=== PATIENT | male | born 1965 | race Caucasian/White ===

== ENCOUNTER 2017-01-26 11:41 | Emergency (ER) | payer BC ==
[2017-01-26 11:53] VITALS: BP 154/112
[2017-01-26] MEDS ORDERED: Sodium Chloride 0.9% 10 ML Syringe FLUSH PRN (12:18)
[2017-01-26] MEDS ORDERED: HYDROmorphone 0.5 MG/0.5 ML Syringe IVPUSH ONE (12:18)
--- NOTE | 2017-01-26 12:20 | EDM.PDOC ---
ED HPI GENERAL MEDICAL PROBLEM - General Chief Complaint: Respiratory Problem Stated Complaint: SOB Time Seen by Provider: 01/26/17 12:09 Source of Information: Reports: Patient History Limitations: Reports: No Limitations - History of Present Illness INITIAL COMMENTS - FREE TEXT/NARRATIVE: Patient is a 51-year-old male with a history of COPD, spontaneous pneumothorax, and hypertension who presents to the ED complaining of right lower sternal border chest discomfort worsened with taking a deep breath and coughing. Patient states this started yesterday and has progressively worsened since onset. It feels like the same pain he experienced with having previous spontaneous pneumothorax approximately 20 years ago. Patient does have a chronic cough that is productive unchanged with recent events. Denies any increased shortness of breath, fever/chills, sinus congestion, or sore throat. He has no abdominal pain. Denies any diarrhea. States he has been nauseated with intermittent emesis for the past 6 weeks with unclear etiology. Patient does have intermittent acid reflux but notes this is not severe. Denies any blood in the stool or emesis. He does consume alcohol on a regular basis. Last drink was last night. States he is an alcoholic. Stopped smoking approximately 10 years ago with diagnosis of COPD. Otherwise offers no additional complaints. Pain is described as sharp with radiation to his mid back. At rest as a 3 out of 10 with coughing or intake and taking a deep breath is a 10 out of 10. Right Chest Pain Score (Numeric/FACES): 3 - Related Data Allergies Allergy/AdvReac Type Severity Reaction Status Date / Time codeine Allergy Anaphylactic Verified 01/26/17 11:48 Shock Home Meds: Home Meds Hydrochlorothiazide/Lisinopril [Lisinopril/HCTZ 20-12.5 MG] 10 mg PO BEDTIME [History] Budesonide/Formoterol Fumarate [Symbicort 160-4.5 Mcg Inhaler] 2 puff IH BID 06/13 [History] Prednisone [IMW: predniSONE] 40 mg PO WITHBREAKFAST #10 tab 01/26/17 [Rx] Past Medical History Cardiovascular History: Reports: Hypertension Respiratory History: Reports: COPD, Pneumothorax - Past Surgical History Other Musculoskeletal Surgeries/Procedures:: surgery to L4 Social & Family History - Tobacco Use Smoking Status *Q: Former Smoker Years of Tobacco use: 20 Used Tobacco, but Quit: Yes Month Tobacco Last Used: 2007 Second Hand Smoke Exposure: No - Alcohol Use Days Per Week of Alcohol Use: 7 Number of Drinks Per Day: 2 Total Drinks Per Week: 14 - Recreational Drug Use Recreational Drug Use: No ED ROS GENERAL - Review of Systems Review Of Systems: ROS reveals no pertinent complaints other than HPI. ED EXAM, GENERAL - Physical Exam Exam: See Below Exam Limited By: No Limitations General Appearance: Alert, WD/WN, No Apparent Distress Ears: Hearing Grossly Normal Nose: Normal Inspection Throat/Mouth: Normal Voice, No Airway Compromise Respiratory/Chest: No Respiratory Distress, Lungs Clear, Normal Breath Sounds, No Accessory Muscle Use, Chest Non-Tender Cardiovascular: Normal Peripheral Pulses, Regular Rate, Rhythm, No Murmur Peripheral Pulses: 2+: Radial (R) GI/Abdominal: Normal Bowel Sounds, Soft, Non-Tender, No Organomegaly, No Distention Extremities: Normal Inspection, Normal Range of Motion, Non-Tender, No Pedal Edema, Normal Capillary Refill Neurological: Alert, Oriented, CN II-XII Intact, Normal Cognition, No Motor/ Sensory Deficits Psychiatric: Normal Affect, Normal Mood Skin Exam: Warm, Dry, Intact, Normal Color Course - Vital Signs Last Recorded V/S: Last Vital Signs Temp 97.8 F 01/26/17 11:42 Pulse 89 01/26/17 11:42 Resp 25 H 01/26/17 11:42 BP 154/112 H 01/26/17 11:42 Pulse Ox 92 L 01/26/17 11:42 - Orders/Labs/Meds Orders: Active Orders 24 hr Category Date Time Status EKG Documentation Completion [RC] ASDIRECTED Care 01/26/17 11:59 Active Peripheral IV Care [RC] . DIRECTED Care 01/26/17 12:18 Active Peripheral IV Insertion Adult [OM.PC] Stat Oth 01/26/17 12:18 Ordered EKG 12 Lead [EK] Stat Ther 01/26/17 11:58 Ordered Labs: Laboratory Tests 01/26/17 01/26/17 01/26/17 Range/Units 11:55 11:55 11:55 WBC 8.09 (4.23-9.07) K/mm3 RBC 4.95 (4.63-6.08) M/mm3 Hgb 15.4 (13.7-17.5) gm/L Hct 43.8 (40.1-51.0) % MCV 88.5 (79.0-92.2) fl MCH 31.1 (25.7-32.2) pg MCHC 35.2 (32.2-35.5) g/dl RDW Std Deviation 41.5 (35.1-43.9) fL Plt Count 174 (163-337) K/mm3 MPV 10.1 (9.4-12.3) fl Neut % (Auto) 52.9 (34.0-67.9) % Lymph % (Auto) 34.0 (21.8-53.1) % Haskell % (Auto) 7.2 (5.3-12.2) % Eos % (Auto) 4.7 (0.8-7.0) Baso % (Auto) 1.1 (0.1-1.2) % Neut # (Auto) 4.28 (1.78-5.38) K/mm3 Lymph # (Auto) 2.75 (1.32-3.57) K/mm3 Haskell # (Auto) 0.58 (0.30-0.82) K/mm3 Eos # (Auto) 0.38 (0.04-0.54) K/mm3 Baso # (Auto) 0.09 H (0.01-0.08) K/mm3 D-Dimer, Quantitative 0.28 (0.19-0.59) mg/L Sodium 139 (136-145) mEq/L Potassium 3.9 (3.5-5.1) mEq/L Chloride 103 (98-107) mEq/L Carbon Dioxide 28 (21-32) mEq/L Anion Gap 11.9 (5-15) BUN 17 (7-18) mg/dL Creatinine 1.1 (0.7-1.3) mg/dL Est Cr Clr Drug Dosing 72.61 mL/min Estimated GFR (MDRD) > 60 (>60) mL/min BUN/Creatinine Ratio 15.5 (14-18) Glucose 157 H (74-106) mg/dL Calcium 9.6 (8.5-10.1) mg/dL Total Bilirubin 0.7 (0.2-1.0) mg/dL AST 29 (15-37) U/L ALT 77 H (16-63) U/L Alkaline Phosphatase 73 (46-116) U/L Troponin I < 0.017 (0.00-0.056) ng/mL Total Protein 7.9 (6.4-8.2) g/dl Albumin 4.0 (3.4-5.0) g/dl Globulin 3.9 gm/dL Albumin/Globulin Ratio 1.0 (1-2) Lipase (73-393) U/L 01/26/17 Range/Units 11:55 WBC (4.23-9.07) K/mm3 RBC (4.63-6.08) M/mm3 Hgb (13.7-17.5) gm/L Hct (40.1-51.0) % MCV (79.0-92.2) fl MCH (25.7-32.2) pg MCHC (32.2-35.5) g/dl RDW Std Deviation (35.1-43.9) fL Plt Count (163-337) K/mm3 MPV (9.4-12.3) fl Neut % (Auto) (34.0-67.9) % Lymph % (Auto) (21.8-53.1) % Haskell % (Auto) (5.3-12.2) % Eos % (Auto) (0.8-7.0) Baso % (Auto) (0.1-1.2) % Neut # (Auto) (1.78-5.38) K/mm3 Lymph # (Auto) (1.32-3.57) K/mm3 Haskell # (Auto) (0.30-0.82) K/mm3 Eos # (Auto) (0.04-0.54) K/mm3 Baso # (Auto) (0.01-0.08) K/mm3 D-Dimer, Quantitative (0.19-0.59) mg/L Sodium (136-145) mEq/L Potassium (3.5-5.1) mEq/L Chloride (98-107) mEq/L Carbon Dioxide (21-32) mEq/L Anion Gap (5-15) BUN (7-18) mg/dL Creatinine (0.7-1.3) mg/dL Est Cr Clr Drug Dosing mL/min Estimated GFR (MDRD) (>60) mL/min BUN/Creatinine Ratio (14-18) Glucose (74-106) mg/dL Calcium (8.5-10.1) mg/dL Total Bilirubin (0.2-1.0) mg/dL AST (15-37) U/L ALT (16-63) U/L Alkaline Phosphatase (46-116) U/L Troponin I (0.00-0.056) ng/mL Total Protein (6.4-8.2) g/dl Albumin (3.4-5.0) g/dl Globulin gm/dL Albumin/Globulin Ratio (1-2) Lipase 209 (73-393) U/L Meds: Medications Discontinued Medications Generic Name Dose Route Start Last Admin Trade Name Freq PRN Reason Stop Dose Admin Hydromorphone HCl 0.25 mg 01/26/17 12:18 Dilaudid IVPUSH 01/26/17 12:19 ONETIME ONE Sodium Chloride 10 ml 01/26/17 12:18 01/26/17 12:36 Saline Flush FLUSH 10 ml ASDIRECTED PRN Administration Keep Vein Open - Re-Assessments/Exams Free Text/Narrative Re-Assessment/Exam: Per standing order EKG, chem 14, d-dimer, and troponin. EKG sinus rhythm at a rate of [address] changes. I ordered Dilaudid 0.25 mg IVP. Patient does have anaphylactic reaction to codeine. He does not recall if he has taken Dilaudid in the past. He refuses any pain medications. Ordered chest x-ray two-view, lipase, and peripheral IV started. Labs reviewed: CBC and C14 are essentially normal. D-Dimer wnl. Troponin < 0.017. Lipase 209. CXR revealed no acute findings. I have ordered CT of the Chest w/o contrast due to patients hx of spontaneous pneumothorax. CT of the chest: Incidental Findings. Nothing acute is seen on noncontrast CT study of the chest. Will discharge patient home with instructions as documented. Departure - Departure Time of Disposition: 13:48 Disposition: Home, Self-Care 01 Condition: Good Clinical Impression: Costal chondritis, Atypical chest pain - Discharge Information Prescriptions: Prednisone [IMW: predniSONE] 40 mg PO WITHBREAKFAST #10 tab Instructions: Chest Wall Pain, [id number] Referrals: Cindy Hoang PA-C [Primary Care Provider] - Forms: ED Department Discharge Additional Instructions: Chest pain is not related to spontaneous pneumothorax. Etiology of complaint most likely costochondritis which is inflammation of the cartilaginous joint that attaches ribs to the sternum. Treatment is prednisone 40 mg every day for the next 5 days, ibuprofen 600 mg every 6 hours and Tylenol 650 mg every 6 hours and alternate fashion. Refrain from activities that cause worsening pain. Follow-up with PCP the end of this week for reevaluation. Return to ED for any new or worsening symptoms. - My Orders Last 24 Hours: My Active Orders 01/26/17 11:58 EKG 12 Lead [EK] Stat 01/26/17 11:59 EKG Documentation Completion [RC] ASDIRECTED 01/26/17 12:18 Peripheral IV Care [RC] . DIRECTED Peripheral IV Insertion Adult [OM.PC] Stat - Assessment/Plan Last 24 Hours: My Active Orders 01/26/17 11:58 EKG 12 Lead [EK] Stat 01/26/17 11:59 EKG Documentation Completion [RC] ASDIRECTED 01/26/17 12:18 Peripheral IV Care [RC] . DIRECTED Peripheral IV Insertion Adult [OM.PC] Stat
--- NOTE | 2017-01-26 13:16 | CT ---
Chest CT Technique: Multiple axial sections through the chest were obtained. Intravenous contrast was not utilized. Comparison: Previous chest x-ray of performed earlier on the same day (12:20 PM). Findings: Small calcified granuloma is noted within the left lung base. Minimal calcification is seen within the left hemidiaphragm. Minimal atelectasis is noted within both lung bases. Lungs otherwise are clear. No pleural effusions or pneumothorax is seen. Fatty infiltration is seen within the liver. No pericardial thickening is seen. Mediastinal lymph nodes are seen which appear within normal limits. Bone window settings were reviewed which appears within normal limits for the patient's age. Impression: 1. Incidental findings. Nothing acute is seen on noncontrast CT study of the chest. Diagnostic code #2
--- NOTE | 2017-01-26 15:59 | CR ---
Chest: Two views of the chest were obtained. Comparison: Prior chest x-ray of 01/02/14 as well as subsequent chest CT. Findings: Slight atelectasis seen within both lung bases. Lungs otherwise are clear. Heart size and mediastinum are within normal limits. Bony structures are unremarkable. Impression: 1. Mild bibasilar atelectasis. Nothing acute is seen on two-view chest x-ray. Diagnostic code #2
== END 2017-01-26 14:01 | disposition home or self-care (01) ==
LOC: JD.ED 11:41
DX: M94.0 Chondrocostal junction syndrome [Tietze] (principal); I10 Essential (primary) hypertension; J44.9 Chronic obstructive pulmonary disease, unspecified; Z87.891 Personal history of nicotine dependence; Z88.5 Allergy status to narcotic agent
CPT/HCPCS: 36415; 71020; 71250; 80053; 83690; 84484; 85025; 85379; 93005; 99285; J7050; 99284

== ENCOUNTER 2019-07-19 19:06 | Emergency (ER) | payer BC ==
[2019-07-19 19:25] VITALS: BP 156/102; PULSE 92
[2019-07-19] MEDS ORDERED: HYDROmorphone 1 MG/ML Syringe IM ONE (19:32)
--- NOTE | 2019-07-19 20:12 | EDM.PDOC ---
ED HPI GENERAL MEDICAL PROBLEM - General Chief Complaint: Upper Extremity Injury/Pain Stated Complaint: BROKEN ARM Time Seen by Provider: 07/19/19 19:23 Source of Information: Reports: Patient, RN Notes Reviewed History Limitations: Reports: No Limitations - History of Present Illness INITIAL COMMENTS - FREE TEXT/NARRATIVE: Patient is a 54 year old male who presents to the ED for the evaluation of a left arm injury. The patient states that he was at home and stepped down off some stairs and fell. He landed on his left elbow, he notes that he had immediate pain to his left shoulder upper arm after the fall. He states that he is experiencing some numbness and tingling in his left arm. He can still move his fingers in all range of motion. He will not move his left shoulder due to the amount of pain he is having, he has not taken any sort of OTC meds for pain relief prior to arrival to the ED. Patient notes that he is right hand dominant. Left Upper Arm Pain Score (Numeric/FACES): 10 - Related Data Allergies Allergy/AdvReac Type Severity Reaction Status Date / Time codeine Allergy Anaphylactic Verified 07/19/19 19:24 Shock Home Meds: Home Meds Hydrochlorothiazide/Lisinopril [Lisinopril/HCTZ 20-12.5 MG] 1.5 tab PO BEDTIME 02/23/15 [History] Budesonide/Formoterol Fumarate [Symbicort 160-4.5 Mcg Inhaler] 2 puff IH BID 06/13 [History] Albuterol [Proventil HFA] 2 puff INH Q4H PRN 07/19/19 [History] Hydrocodone/Acetaminophen [Hydrocodon-Acetaminophen 5-325] 1 tab PO Q6H PRN #15 tablet 07/19/19 [Rx] metFORMIN [Glucophage] 1,000 mg PO DAILY 07/19/19 [History] Past Medical History Cardiovascular History: Reports: High Cholesterol, Hypertension Respiratory History: Reports: Asthma, COPD, Pneumothorax Musculoskeletal History: Reports: Arthritis Endocrine/Metabolic History: Reports: Diabetes, Type II - Infectious Disease History Infectious Disease History: Reports: Chicken Pox, Measles, Mumps - Past Surgical History GI Surgical History: Reports: Appendectomy, Hernia Repair/Other Musculoskeletal Surgical History: Reports: Other (See Below) Other Musculoskeletal Surgeries/Procedures:: surgery to L4, hand sx Social & Family History - Family History Family Medical History: Noncontributory - Tobacco Use Smoking Status *Q: Current Every Day Smoker Years of Tobacco use: 15 Packs/Tins Daily: 1 - Caffeine Use Caffeine Use: Reports: Coffee - Alcohol Use Days Per Week of Alcohol Use: 7 Number of Drinks Per Day: 3 Total Drinks Per Week: 21 - Recreational Drug Use Recreational Drug Use: No Review of Systems - Review of Systems Review Of Systems: Comprehensive ROS is negative, except as noted in HPI. ED EXAM, GENERAL - Physical Exam Exam: See Below Exam Limited By: No Limitations General Appearance: Alert, WD/WN, No Apparent Distress (pt does appear to be in pain.) Respiratory/Chest: No Respiratory Distress, Lungs Clear, Normal Breath Sounds, No Accessory Muscle Use, Chest Non-Tender Cardiovascular: Normal Peripheral Pulses, Regular Rate, Rhythm, No Murmur Extremities: Normal Inspection, Normal Capillary Refill, Limited Range of Motion (of left arm d/t pain.) Neurological: Alert, Oriented, Normal Cognition, No Motor/Sensory Deficits Psychiatric: Normal Affect, Normal Mood Skin Exam: Warm, Dry, Intact, Normal Color, No Rash Course - Vital Signs Last Recorded V/S: Last Vital Signs Temp 98.0 F 07/19/19 19:22 Pulse 92 07/19/19 19:22 Resp 19 07/19/19 19:22 BP 156/102 H 07/19/19 19:22 Pulse Ox 95 07/19/19 19:22 - Orders/Labs/Meds Orders: Active Orders 24 hr Category Date Time Status DME for Discharge [COMM] Urgent Oth 07/19/19 21:26 Ordered Meds: Medications Discontinued Medications Generic Name Dose Route Start Last Admin Trade Name Kamron PRN Reason Stop Dose Admin Hydromorphone HCl 1 mg 07/19/19 19:32 07/19/19 20:18 Dilaudid IM 07/19/19 19:33 1 mg ONETIME ONE Administration - Re-Assessments/Exams Free Text/Narrative Re-Assessment/Exam: 07/19/19 20:14 Patient presents to the ED for the evaluation of a left shoulder/upper arm injury. Did order 1 mg Dilaudid for pain management, and x-rays of the shoulder and humerus for further evaluation. 07/19/19 21:32 X-rays sent no sign of a shoulder fracture or humerus fracture. I did relay this to the patient, we will provide him with a sling for pain management, and other general recommendations have him follow-up with his regular care provider if not feeling much better between 7 to 10 days. Departure - Departure Time of Disposition: 21:29 Disposition: Home, Self-Care 01 Condition: Fair Clinical Impression: Injury of left shoulder and upper arm Qualifiers: Encounter type: initial encounter Qualified Code(s): S49.92XA - Unspecified injury of left shoulder and upper arm, initial encounter - Discharge Information *PRESCRIPTION DRUG MONITORING PROGRAM REVIEWED*: Yes *COPY OF PRESCRIPTION DRUG MONITORING REPORT IN PATIENT OPAL: No Prescriptions: Hydrocodone/Acetaminophen [Hydrocodon-Acetaminophen 5-325] 1 tab PO Q6H PRN #15 tablet PRN Reason: Pain Instructions: How To Use a Sling, [id number], Shoulder Pain, [id number] Referrals: Cindy Hoang PA-C [Primary Care Provider] - Forms: ED Department Discharge Additional Instructions: You have been evaluated in the ED for your left shoulder injury. Your x-ray demonstrated no fracture or other bony abnormalities of your left shoulder or upper arm. Please use ice as tolerated to the affected area. Please try to elevate the affected area to relieve swelling. You were given a sling, for pain management , recommend you take your arm out of the sling at least 3-4 times daily and do some range of motion exercises so you do not get a frozen shoulder. You may take Tylenol 500 mg or ibuprofen 600mg q6 hrs for pain relief. Please do so until you have a tolerable level of pain with activity. Do not exceed 4000mg Tylenol or 3200mg ibuprofen in a 24 hour time period. You were given a prescription for a strong pain medication, hydrocodone/ acetaminophen 5/325mg, please take 1 tab every 6 hours as needed for pain not relieved by Tylenol or ibuprofen alone. Please note this medication does contain Tylenol in it, so do not take more than 4000 mg in a 24-hour time span. These medications can be addictive, so please take as few as possible to achieve adequate pain control. These meds can also be quite constipating, recommend that you increase your oral fluid intake and take a stool softener like MiraLAX while taking these medications. Do not drive while taking this medication. Please return to ED if your symptoms should change or worsen. Sepsis Event Note - Evaluation Sepsis Screening Result: No Definite Risk - Focused Exam Vital Signs: Vital Signs Temp Pulse Resp BP Pulse Ox 07/19/19 19:22 98.0 F 92 19 156/102 H 95 Date Exam was Performed: 07/19/19 Time Exam was Performed: 21:32 - My Orders Last 24 Hours: My Active Orders 07/19/19 21:26 DME for Discharge [COMM] Urgent - Assessment/Plan Last 24 Hours: My Active Orders 07/19/19 21:26 DME for Discharge [COMM] Urgent
--- NOTE | 2019-07-19 21:13 | CR ---
Left humerus: AP and lateral views left humerus were obtained. Comparison: No previous humerus study. No fracture or other bony abnormality is appreciated. Impression: 1. No abnormality is identified on 2 view left humerus study. Diagnostic code #1 This report was dictated in MDT
--- NOTE | 2019-07-19 21:13 | CR ---
Left shoulder: 3 views left shoulder were obtained. Comparison: No previous shoulder study. Glenohumeral joint and acromioclavicular joint appears unremarkable. No fracture, dislocation or other bony abnormality is identified. Impression: 1. No abnormality is appreciated on 3 views left shoulder study. Diagnostic code #1 This report was dictated in MDT
== END 2019-07-19 21:37 | disposition home or self-care (01) ==
LOC: JD.ED 19:06
DX: S49.92XA Unspecified injury of left shoulder and upper arm, initial encounter (principal); J44.9 Chronic obstructive pulmonary disease, unspecified; E11.9 Type 2 diabetes mellitus without complications; F17.210 Nicotine dependence, cigarettes, uncomplicated; Z88.5 Allergy status to narcotic agent; Z79.84 Long term (current) use of oral hypoglycemic drugs; W10.9XXA Fall (on) (from) unspecified stairs and steps, initial encounter
CPT/HCPCS: 73030; 73060; 96372; 99283; J1170

== ENCOUNTER 2020-01-25 07:36 | Day surgery (SDC) | payer BC ==
[~2020-01-25 07:36] MED LIST: Albuterol 0.083% 2.5 MG/3 ML Neb Soln NEB PRN; Bisacodyl 5 MG Tab PO PRN; EPINEPHrine 1 MG/ML SDV ONE; Lidocaine 1% 4 ML ONE; Lidocaine 1%/Sod Bicarbonate in NS 8.4% 1 ML Syringe IDERM PRN; Magnesium Hydroxide 400 MG/5 ML Susp 30 ML Cup PO PRN; Midazolam 1 MG/ML 2 ML SDV ONE; Naloxone 0.4 MG/ML SDV IVPUSH PRN; Ondansetron 4 MG/2 ML SDV IVPUSH PRN; Ondansetron 4 MG/2 ML SDV ONE; Propofol 200 MG/20 ML SDV ONE; Rocuronium 50 MG/5 ML Vial ONE; Ropivacaine 0.5% 5 MG/ML 30 ML SDV ONE; Sennosides 8.6 MG Tab PO PRN; Sodium Chloride 0.9% 10 ML Syringe FLUSH PRN; ceFAZolin 1 GM Vial ONE; fentaNYL 250 MCG/5 ML SDV ONE; oxyCODONE 5 MG Tab PO PRN
[2020-01-25] MEDS ORDERED: Bupivacaine 0.25% 10 ML SDV ONE (07:40)
[2020-01-25] MEDS ORDERED: Vancomycin 1 GM SDV ONE (07:40)
--- NOTE | 2020-01-25 07:40 | PCM.PREANE ---
Preanesthetic Assessment - Procedure Proposed Procedure: left reverse total shoulder arthroscopy - Physical Assessment NPO Status Date: 01/24/20 NPO Status Time: 22:00 Vital Signs: 74 97% 98.1 139/93 16 Height: 5 ft 6 in Weight: 79.7 kg ASA Class: 2 Mental Status: Alert & Oriented x3 ROM/Head Extension: Full Lungs: Clear to Auscultation, Normal Respiratory Effort Cardiovascular: Regular Rate, Regular Rhythm - Lab Values: Laboratory Last Values MRSA (PCR) Negative 01/10/20 12:00 - Allergies Allergies/Adverse Reactions: Allergies Allergy/AdvReac Type Severity Reaction Status Date / Time codeine Allergy Nausea and Verified 01/24/20 12:32 Vomiting - Blood Blood Available: No - Acknowledgements Anesthesia Type Planned: General Anesthesia Pt an Appropriate Candidate for the Planned Anesthesia: Yes Alternatives and Risks of Anesthesia Discussed w Pt/Guardian: Yes Pt/Guardian Understands and Agrees with Anesthesia Plan: Yes PreAnesthesia Questionnaire HEENT History: Reports: Other (See Below) Other HEENT History: dentures Cardiovascular History: Reports: High Cholesterol, Hypertension Respiratory History: Reports: COPD, Other (See Below) Other Respiratory History: collapsed lung, chronic bronchitis Genitourinary History: Reports: None [employer] History: Reports: None Musculoskeletal History: Reports: None Neurological History: Reports: None Psychiatric History: Reports: None Endocrine/Metabolic History: Reports: Diabetes, Type II Hematologic History: Reports: None Immunologic History: Reports: None Oncologic (Cancer) History: Reports: None Dermatologic History: Reports: Other (See Below) Other Dermatologic History: ingrown toenails - Infectious Disease History Infectious Disease History: Reports: Chicken Pox, Measles, Mumps - Past Surgical History Head Surgeries/Procedures: Reports: None HEENT Surgical History: Reports: Oral Surgery Cardiovascular Surgical History: Reports: None Respiratory Surgical History: Reports: None GI Surgical History: Reports: Appendectomy, Colonoscopy, Hernia, Inguinal Female Surgical History: Reports: None Male Surgical History: Reports: None Endocrine Surgical History: Reports: None Neurological Surgical History: Reports: None Musculoskeletal Surgical History: Reports: None, Other (See Below) (replace 4 fingers) Oncologic Surgical History: Reports: None Dermatological Surgical History: Reports: None - SUBSTANCE USE Smoking Status *Q: Former Smoker Tobacco Use Within Last Twelve Months: Smokeless Tobacco Second Hand Smoke Exposure: Yes Days Per Week of Alcohol Use: 7 Number of Drinks Per Day: 4 (whiskey) Total Drinks Per Week: 28 Recreational Drug Use History: No - HOME MEDS Home Medications: Home Meds metFORMIN [Glucophage] 500 mg PO DAILY 07/19/19 [History] Albuterol [Take Home: Albuterol 18 GM, 1 INH Pack] 1 - 2 puff INH QID PRN 01/24/20 [History] Cholecalciferol (Vitamin D3) [Vitamin D3] 5,000 unit PO DAILY 01/24/20 [History] Lisinopril/Hydrochlorothiazide [Lisinopril-Hctz 20-25 mg Tab] 1 tab PO DAILY 01/24/20 [History] Simvastatin [Zocor] 40 mg PO DAILY 01/24/20 [History] Aspirin [Ecotrin EC] 325 mg PO BID #84 tab.ec 01/25/20 [Rx] Cyclobenzaprine [Flexeril] 10 mg PO BID PRN #20 tablet 01/25/20 [Rx] Docusate Sodium [Colace] 100 mg PO BID cap 01/25/20 [Rx] Famotidine [Pepcid] 20 mg PO Q12H tablet 01/25/20 [Rx] Magnesium Hydroxide [Milk of Magnesia] 30 ml PO BID PRN cup 01/25/20 [Rx] bisacodyL [Dulcolax] 5 mg PO DAILY PRN tablet 01/25/20 [Rx] oxyCODONE 5 - 10 mg PO Q4H PRN #60 tab 01/25/20 [Rx] - CURRENT (IN HOUSE) MEDS Current Meds: Current Medications Albuterol (Proventil Neb Soln) 2.5 mg NEB ONETIME PRN PRN Reason: COPD Stop: 01/25/20 18:00 Aspirin (Ecotrin) 325 mg PO BID CLAIRE Bisacodyl (Dulcolax) 5 mg PO DAILY PRN PRN Reason: Constipation Cyclobenzaprine HCl (Flexeril) 10 mg PO BID PRN PRN Reason: Spasms Docusate Sodium (Colace) 100 mg PO BID CLAIRE Famotidine (Pepcid) 20 mg PO Q12H CLAIRE Lactated Ringer's (Ringers, Lactated) 1,000 mls @ 125 mls/hr IV ASDIRECTED CLAIRE Stop: 01/25/20 23:00 Cefazolin Sodium/Dextrose 2 gm (/ Premix) 50 mls @ 100 mls/hr IV Q8H CLAIRE Stop: 01/25/20 07:14 Ketorolac Tromethamine (Toradol) 15 mg IVPUSH Q6H PRN PRN Reason: Pain Lidocaine/Sodium Bicarbonate (Buffered Lidocaine 1% In Ns 8.4%) 0.25 ml IDERM ONETIME PRN PRN Reason: Prior to IV Start Stop: 01/25/20 18:00 Magnesium Hydroxide (Milk Of Magnesia) 30 ml PO BID PRN PRN Reason: Constipation Naloxone HCl (Narcan) 0.1 mg IVPUSH Q5M PRN PRN Reason: Oversedation Ondansetron HCl (Zofran) 4 mg IVPUSH Q6H PRN PRN Reason: Nausea/Vomiting Oxycodone HCl (Oxycodone) 5 - 10 mg PO Q4H PRN PRN Reason: Pain Senna (Senna) 8.6 mg PO BID PRN PRN Reason: Constipation Sodium Chloride (Saline Flush) 10 ml FLUSH ASDIRECTED PRN PRN Reason: Keep Vein Open Stop: 01/25/20 18:00 Discontinued Medications Cefazolin Sodium (Ancef) Confirm Administered Dose 2 gm .ROUTE .STK-MED ONE Stop: 01/25/20 06:59 Epinephrine HCl (Adrenalin) Confirm Administered Dose 1 mg .ROUTE .STK-MED ONE Stop: 01/25/20 07:13 Fentanyl (Sublimaze) Confirm Administered Dose 250 mcg .ROUTE .STK-MED ONE Stop: 01/25/20 06:59 Lidocaine HCl (Xylocaine-Mpf 1%) Confirm Administered Dose 4 mls @ as directed .ROUTE .STK-MED ONE Stop: 01/25/20 06:58 Midazolam HCl (Versed 1 Mg/Ml) Confirm Administered Dose 2 mg .ROUTE .STK-MED ONE Stop: 01/25/20 06:59 Ondansetron HCl (Zofran) Confirm Administered Dose 4 mg .ROUTE .STK-MED ONE Stop: 01/25/20 06:58 Propofol (Diprivan 20 Ml) Confirm Administered Dose 400 mg .ROUTE .STK-MED ONE Stop: 01/25/20 06:58 Rocuronium [place] (Zemuron) Confirm Administered Dose 50 mg .ROUTE .STK-MED ONE Stop: 01/25/20 06:58 Ropivacaine (Naropin 0.5%) Confirm Administered Dose 30 ml .[facility]TE [facility] Stop: 01/25/20 07:13
[2020-01-25] MEDS: Lactated Ringers 1,000 ML IV SCH ×2 (08:00→11:51)
[2020-01-25] MEDS ORDERED: Ondansetron 4 MG/2 ML SDV IVPUSH PRN (09:28)
[2020-01-25] MEDS ORDERED: fentaNYL 100 MCG/2 ML SDV IVPUSH PRN (09:28)
[2020-01-25] MEDS ORDERED: ePHEDrine Sulfate/0.9% NaCl/Pf 25 MG/5 ML SYRINGE IV ONE (10:03)
[2020-01-25] MEDS ORDERED: Lactated Ringers 1,000 ML ONE (10:04)
[2020-01-25] MEDS ORDERED: Ketorolac 30 MG/ML SDV ONE (10:13)
--- NOTE | 2020-01-25 11:18 | PCM.POSTAN ---
POST ANESTHESIA ASSESSMENT - MENTAL STATUS Mental Status: Alert, Oriented - VITAL SIGNS Vital Signs: Last Vital Signs Temp 98.1 F 01/25/20 07:35 Pulse 68 01/25/20 07:35 Resp 16 01/25/20 07:35 BP 139/93 H 01/25/20 07:35 Pulse Ox 98 01/25/20 08:34 1108 96% 106 20 98.4 112/80 - RESPIRATORY Respiratory Status: Respiratory Rate WNL, Airway Patent, O2 Saturation Stable, Supplemental Oxygen - CARDIOVASCULAR CV Status: Pulse Rate WNL, Blood Pressure Stable - GASTROINTESTINAL GI Status: No Symptoms - PAIN Pain Score: 0 - POST OP HYDRATION Hydration Status: Adequate & Stable
--- NOTE | 2020-01-25 11:46 | PCM.SN.2 ---
- Free Text/Narrative Note: Date: 01/25/20 Time Out: 0854 Start: 857 Stop: 902 Surgical Procedure: Left Reverse total shoulder arthroplasty Diagnosis : left rotator cuff arthropathy Current Procedure: left interscalene block under US guidance for postoperative pain control requested by Dr. Gan. Patient chart reviewed, risk/benefits discussed with patient, consent obtained. Patient positioned supine, monitors/alarms on, oxygen placed via nasal cannula at 2 LPM. IV sedation administered: Versed 2mg IV, Fentanyl 100 mcg IV given in preop prior to block placement. Left shoulder prepped with two chloropreps. Sterile drapes placed with aseptic technique noted. Under US guidance, left subclavian artery visualized along with the left brachial plexus. Plexus followed up to C6 cricoid level, and area localized with 2mls of 1% lidocaine. 22gauge 2 inch stimiplex needle advanced under US with 0.6mV with stimulation of biceps noted. Good stimulation noted with decreased voltage and absent at 0.3mVs. 1ml of Normal Saline injected with loss of stimulation noted to confirm needle not placed intraneurally. Incremental dosing of 5mls with negative aspiration noted prior to each injection of 0.5% ropivacaine with 1:200,000 epinephrine. Total volume=30mls. Cristina Carmichael CRNA
[2020-01-25] MEDS: HYDROmorphone 0.5 MG/0.5 ML Syringe IVPUSH PRN ×2 (11:48→12:03)
--- NOTE | 2020-01-25 13:10 | PCM48HPAN ---
Post Anesthesia Note - EVALUATION WITHIN 48HRS OF ANESTHETIC Vital Signs in Normal Range: Yes Patient Participated in Evaluation: Yes Respiratory Function Stable: Yes Airway Patent: Yes Cardiovascular Function Stable: Yes Hydration Status Stable: Yes Pain Control Satisfactory: Yes Nausea and Vomiting Control Satisfactory: Yes Mental Status Recovered: Yes Vital Signs: Last Vital Signs Temp 98.0 F 01/25/20 12:20 Pulse 78 01/25/20 12:50 Resp 16 01/25/20 12:50 BP 128/92 H 01/25/20 12:50 Pulse Ox 94 L 01/25/20 12:50 - COMMENTS/OBSERVATIONS Free Text/Narrative:: Sitting up in bed eating. Pain ok. Only 1 spot anterior chest that hurts. Pain meds given prior. Denies nausea.
[2020-01-25] MEDS ORDERED: ceFAZolin 2 GM in Premix Bag 1 BAG IV SCH (15:00)
[2020-01-25 15:16] VITALS: BP 114/77; PULSE 81
[2020-01-25] MEDS ORDERED: Ketorolac 15 MG/ML SDV IVPUSH PRN (16:15)
[2020-01-25] MEDS ORDERED: Cyclobenzaprine 10 MG Tab PO PRN (21:00)
[2020-01-25] MEDS ORDERED: Docusate Sodium 100 MG Cap PO SCH (21:00)
[2020-01-25] MEDS ORDERED: Famotidine 20 MG Tab PO SCH (21:00)
[2020-01-26] MEDS ORDERED: Aspirin 325 MG Tab.EC PO SCH (09:00)
--- NOTE | 2020-02-02 07:24 | PCM.OPNOTE ---
- General Post-Op/Procedure Note Date of Surgery/Procedure: 01/25/20 Operative Procedure(s): left reverse total shoulder arthroplasty Pre Op Diagnosis: left shoulder rotator cuff tear arthropathy Post-Op Diagnosis: Same Anesthesia Technique: General ET Tube, Regional Block Primary Surgeon: Mumtaz Gan Anesthesia Provider: Cristina Carmichael Archaeologist: Cecily Burgos Archaeologist: Almita Jin EBL in mLs: 40 Complications: None Condition: Good Free Text/Narrative:: 28 baseplate 36+6 10 stem 4 poly
--- NOTE | 2020-02-02 09:03 | OR ---
DATE OF OPERATION: 01/25/2020 SURGEON: Mumtaz Gan MD OPERATION PERFORMED: Left reverse total shoulder arthroplasty. PREOPERATIVE DIAGNOSIS: Left shoulder rotator cuff tear arthropathy. POSTOPERATIVE DIAGNOSIS: Left shoulder rotator cuff tear arthropathy. ANESTHESIA: General endotracheal intubation with regional interscalene block. ANESTHESIA PROVIDER: Cristina Carmichael CRNA THERAPEUTIC CASE MANAGER: Cecily Burgos PA-C and Almita Jin LPN. ESTIMATED BLOOD LOSS: 40 mL. COMPLICATIONS: None. CONDITION: Stable. IMPLANTS: 1. [place] size 28 mm concentric base plate. 2. [place] size 36 + 6 glenosphere. 3. [place] size 10 humeral stem. 4. [place] size 4 mm polyethylene. DESCRIPTION OF PROCEDURE: The patient was identified in the preop holding area. Proper site was marked and identified by the surgeon. The patient was taken back to the operating theater. After adequate anesthesia, the patient's left upper extremity sterile prepped and draped in the usual sterile fashion. OR time-out was performed. The patient received 2 g IV Ancef. At this time, the patient was placed in a reverse Trendelenburg position and standard deltopectoral incision was made. This was taken down to the cephalic vein. Cephalic vein was identified and was retracted laterally with the deltoid. The clavipectoral fascia was incised and the conjoined tendon was retracted medially. Anterior humeral circumflex vessels were then ligated. Biceps tendon was identified and subpectoral tenodesis was then performed at this time using a #2 FiberWire. The biceps tendon was then resected, and was resected all the way back to the level of the glenoid. The subscapularis tendon was noted to be partially torn and was peeled down at this time. The humeral head was then dislocated. Humeral head cut was then completed and found to be adequate. Attention was turned to the glenoid. Anterior and posterior glenoid retractors were placed. Circumferential removal of the labrum was done at this time as well as removal of capsule. A guide pin was then placed in a center-center position with roughly 10-degree inferior tilt, and the peripheral reamer for 28 base plate was then utilized until there was a smile sign and good cancellous bone. Guide pin was removed, and the glenoid base plate with a 32 mm central compression screw was then placed and was found to have good compression against the glenoid. A superior and inferior locking screw were then applied and found to have adequate purchase. A 36 + 6 glenosphere was impacted into place and found to have good fit. Attention was turned to the humerus starting with an 8 broach. I was able to broach up to a size 10 which was found to be rotationally and vertically stable. Trial implants using a 4 mm liner were then trialed. The patient had adequate tension on both the deltoid as well as conjoined tendon. No signs of instability as the shoulder was taken through range of motion. C-arm fluoroscopy was utilized showing all well-seated implants with the stem not varus. Trial implants were then removed, and the components were constructed on the back table with a 10 stem 135 degree liner with +4. This was then impacted into the humerus and was found to have good fit and was reduced. C-arm fluoroscopy again was utilized showing all of the implants to be in proper position. Irrisept was then irrigated through the shoulder. 0.25% Marcaine was then injected. 2-0 Vicryl was used subcutaneously, and Prineo was used for closure of the skin. The patient tolerated the procedure well and was sent to PACU in stable condition. DAYSI /[id number]
--- NOTE | 2020-03-01 15:44 | CR ---
PROCEDURE INFORMATION: Exam: XR Left Shoulder Exam date and time: 01/25/2020 11:13 AM Age: 54 years old Clinical indication: Device placement; Joint replacement hardware; Prior surgery; Surgery date: Post-operative (0-2 days); Surgery type: Shoulder replacement TECHNIQUE: Imaging protocol: XR Left shoulder. Views: 1 view. COMPARISON: No relevant prior studies available. FINDINGS: Bones/joints: Left shoulder arthroplasty in place. Alignment is anatomic. No evidence for fracture. Horizontal lucency along the proximal left humeral shaft/arthroplasty probably artifactual and likely not a fracture. Soft tissues: Normal. IMPRESSION: Left shoulder arthroplasty. Thank you for allowing us to participate in the care of your patient. Dictated and Authenticated by: Don Angela MD 03/01/2020 4:43 PM Central Time ([place] & [place]) ISSA
--- NOTE | 2020-03-06 11:29 | CR ---
PROCEDURE INFORMATION: Exam: FL Fluoroscopy, Up to 1 Hour Physician Time; Radiologist Not Present For Fluoroscopy Exam date and time: 01/25/2020 10:26 AM Age: 54 years old Clinical indication: Condition or disease; Condition/disease: Left shoulder replacement TECHNIQUE: Imaging protocol: Fluoroscopy , up to 1 hour physician or other qualified health critical care technician time. This radiologist did not supervise this procedure. Exam supervised by facility personnel. Report for radiation dosage reporting and documentation only. COMPARISON: No relevant prior studies available. RADIATION DOSE METRICS: Fluoroscopy time (seconds): 2.2 seconds Number of fluoro spot images: 2 Reference air kerma (NEO): Not provided. FINDINGS: Procedural imaging: Status post left shoulder total reverse arthroplasty. Notes: Fluoroscopy supervised by facility personnel. See also separate procedure report. IMPRESSION: Status post left shoulder arthroplasty Thank you for allowing us to participate in the care of your patient. Dictated and Authenticated by: Rajeev Kay MD 03/04/2020 6:23 AM Central Time ([place] & [place]) ISSA
== END 2020-01-25 15:10 | disposition home or self-care (01) ==
LOC: JD.SDS 07:36 → EDSTATUS 08:00 → JD.SDS 15:10
PROVIDERS: ATTEND Orthopaedic Surgery
DX: M75.102 Unspecified rotator cuff tear or rupture of left shoulder, not specified as traumatic (principal); I25.10 Atherosclerotic heart disease of native coronary artery without angina pectoris; E11.9 Type 2 diabetes mellitus without complications; I25.2 Old myocardial infarction; I50.9 Heart failure, unspecified; I11.0 Hypertensive heart disease with heart failure; E78.2 Mixed hyperlipidemia; J42 Unspecified chronic bronchitis; G89.18 Other acute postprocedural pain; Z01.812 Encounter for preprocedural laboratory examination; Z20.828 Contact with and (suspected) exposure to other viral communicable diseases; Z88.5 Allergy status to narcotic agent; Z79.899 Other long term (current) drug therapy; Z79.82 Long term (current) use of aspirin; Z90.89 Acquired absence of other organs; Z98.890 Other specified postprocedural states; Z87.891 Personal history of nicotine dependence; Z79.84 Long term (current) use of oral hypoglycemic drugs
CPT/HCPCS: 23474; 73020; 76000; 82962; 87635; 87641; 94640; 97110; 97161; A9270; C1713; C1776; J0171; J0690; J1170; J1885; J2001; J2250; J2370; J2405; J2704; J2795; J3010; J3370; J7120; 01638; 64415; J3490; U0002

== ENCOUNTER 2020-03-12 15:14 | Emergency (ER) | payer SELFPAY ==
[2020-03-12 15:27] VITALS: BP 124/87; PULSE 95
--- NOTE | 2020-03-12 15:29 | EDM.PDOC ---
ED HPI GENERAL MEDICAL PROBLEM - General Chief Complaint: Chest Pain Stated Complaint: DIZZY AND SWEATY X 2 DAYS SENT BY [facility] Time Seen by Provider: 03/12/20 15:26 - History of Present Illness INITIAL COMMENTS - FREE TEXT/NARRATIVE: 54-year-old male presents the emergency room with upper abdominal pain. Patient has had significant heartburn and reflux over the last few days now is getting some chest pain associated with this. Patient has a history of type 2 diabetes. All his symptoms seem to develop about 5 days ago after he had a steroid injection into his knee. He was on Metformin and this is been continued however they have started him on a long-acting insulin 10 units daily. The patient complains of significant pain he points to the epigastric area. This seems to be a little worse on the left compared to the right. The patient has had decreased appetite. He states his blood sugar at home earlier today was about 110. Chest Pain Score (Numeric/FACES): 9 - Related Data Allergies Allergy/AdvReac Type Severity Reaction Status Date / Time codeine AdvReac Nausea and Verified 03/12/20 15:54 Vomiting Home Meds: Home Meds metFORMIN [Glucophage] 500 mg PO DAILY 07/19/19 [History] Albuterol [Take Home: Albuterol 18 GM, 1 INH Pack] 1 - 2 puff INH QID PRN 01/24/20 [History] Cholecalciferol (Vitamin D3) [Vitamin D3] 5,000 unit PO DAILY 01/24/20 [History] Lisinopril/Hydrochlorothiazide [Lisinopril-Hctz 20-25 mg Tab] 1 tab PO DAILY 01/24/20 [History] Aspirin 81 mg PO DAILY 01/25/20 [History] Aspirin [Ecotrin EC] 325 mg PO BID #84 tab.ec 01/25/20 [Rx] Cranberry 400 mg PO DAILY 01/25/20 [History] Cyclobenzaprine [Flexeril] 10 mg PO BID PRN #20 tablet 01/25/20 [Rx] Docusate Sodium [Colace] 100 mg PO BID cap 01/25/20 [Rx] Famotidine [Pepcid] 20 mg PO Q12H tablet 01/25/20 [Rx] Magnesium Hydroxide [Milk of Magnesia] 30 ml PO BID PRN cup 01/25/20 [Rx] bisacodyL [Dulcolax] 5 mg PO DAILY PRN tablet 01/25/20 [Rx] oxyCODONE 5 - 10 mg PO Q4H PRN #60 tab 01/25/20 [Rx] Past Medical History HEENT History: Reports: Other (See Below) Other HEENT History: dentures Cardiovascular History: Reports: High Cholesterol, Hypertension Respiratory History: Reports: COPD, Other (See Below) Other Respiratory History: collapsed lung, chronic bronchitis Genitourinary History: Reports: None [employer] History: Reports: None Musculoskeletal History: Reports: None Neurological History: Reports: None Psychiatric History: Reports: None Endocrine/Metabolic History: Reports: Diabetes, Type II Hematologic History: Reports: None Immunologic History: Reports: None Oncologic (Cancer) History: Reports: None Dermatologic History: Reports: Other (See Below) Other Dermatologic History: ingrown toenails - Infectious Disease History Infectious Disease History: Reports: Chicken Pox, Measles, Mumps - Past Surgical History Head Surgeries/Procedures: Reports: None HEENT Surgical History: Reports: Oral Surgery Cardiovascular Surgical History: Reports: None Respiratory Surgical History: Reports: None GI Surgical History: Reports: Appendectomy, Colonoscopy, Hernia, Inguinal Female Surgical History: Reports: None Male Surgical History: Reports: None Endocrine Surgical History: Reports: None Neurological Surgical History: Reports: None Musculoskeletal Surgical History: Reports: None, Other (See Below) (replace 4 fingers) Oncologic Surgical History: Reports: None Dermatological Surgical History: Reports: None Social & Family History - Family History Family Medical History: No Pertinent Family History - Caffeine Use Caffeine Use: Reports: Coffee ED ROS GENERAL - Review of Systems Review Of Systems: See Below Constitutional: Reports: No Symptoms, Other (He has had some dizziness and sweats) HEENT: Reports: No Symptoms Respiratory: Reports: No Symptoms Cardiovascular: Reports: Chest Pain (Left-sided chest pain in the lower chest) Endocrine: Reports: Fatigue GI/Abdominal: Reports: Abdominal Pain, Decreased Appetite, Nausea. Denies: Constipation, Vomiting : Reports: No Symptoms, Discharge, Dysuria Musculoskeletal: Reports: No Symptoms Skin: Reports: No Symptoms Neurological: Reports: No Symptoms Psychiatric: Reports: No Symptoms Hematologic/Lymphatic: Reports: No Symptoms ED EXAM, GENERAL - Physical Exam Exam: See Below Exam Limited By: No Limitations General Appearance: Alert, No Apparent Distress, Other (His blood sugar is 103) Eye Exam: Bilateral Eye: Normal Inspection Ears: Normal External Exam, Normal Canal, Hearing Grossly Normal, Normal TMs Nose: Normal Mucosa, No Blood Throat/Mouth: Normal Inspection, Normal Lips, Normal Gums, Normal Oropharynx, Normal Voice, No Airway Compromise, Other (He had all his teeth removed a couple years ago) Head: Atraumatic, Normocephalic Neck: Normal Inspection, Supple, Non-Tender, Full Range of Motion Respiratory/Chest: No Respiratory Distress, Lungs Clear, Normal Breath Sounds Cardiovascular: Regular Rate, Rhythm, No Edema, No Murmur GI/Abdominal: Normal Bowel Sounds, Soft, Tender (Nephric and epigastric discomfort with palpation of this radiates slightly to the right more so to the left he has minimal discomfort in the right upper quadrant moderate discomfort in the left upper quadrant) Back Exam: Normal Inspection. No: CVA Tenderness (L), CVA Tenderness (R) Extremities: Normal Inspection, Normal Range of Motion Neurological: Alert, Oriented Course - Vital Signs Last Recorded V/S: Last Vital Signs Temp 36.9 C 03/12/20 15:21 Pulse 95 03/12/20 15:21 Resp 16 03/12/20 15:21 BP 124/87 03/12/20 15:21 Pulse Ox 97 03/12/20 15:21 - Orders/Labs/Meds Orders: Active Orders 24 hr Category Date Time Status EKG Documentation Completion [RC] STAT Care 03/12/20 15:44 Active Labs: Laboratory Tests 03/12/20 03/12/20 03/12/20 Range/Units 15:34 16:05 16:05 WBC 15.74 H (4.23-9.07) K/mm3 RBC 4.64 (4.63-6.08) M/mm3 Hgb 14.3 (13.7-17.5) gm/dl Hct 42.6 (40.1-51.0) % MCV 91.8 D (79.0-92.2) fl MCH 30.8 (25.7-32.2) pg MCHC 33.6 (32.2-35.5) g/dl RDW Std Deviation 43.0 (35.1-43.9) fL Plt Count 262 D (163-337) K/mm3 MPV 9.5 (9.4-12.3) fl Neut % (Auto) 62.7 (34.0-67.9) % Lymph % (Auto) 25.8 (21.8-53.1) % [place] % (Auto) 6.6 (5.3-12.2) % Eos % (Auto) 4.4 (0.8-7.0) Baso % (Auto) 0.1 (0.1-1.2) % Neut # (Auto) 9.87 H (1.78-5.38) K/mm3 Lymph # (Auto) 4.06 H (1.32-3.57) K/mm3 [place] # (Auto) 1.04 H (0.30-0.82) K/mm3 Eos # (Auto) 0.69 H (0.04-0.54) K/mm3 Baso # (Auto) 0.02 (0.01-0.08) K/mm3 Manual Slide Review Normal smear PT 10.3 (9.7-12.0) SECONDS INR 0.96 APTT 25.1 (21.7-31.4) SECONDS Sodium (136-145) mEq/L Potassium (3.5-5.1) mEq/L Chloride (98-107) mEq/L Carbon Dioxide (21-32) mEq/L Anion Gap (5-15) BUN (7-18) mg/dL Creatinine (0.7-1.3) mg/dL Est Cr Clr Drug Dosing mL/min Estimated GFR (MDRD) (>60) mL/min BUN/Creatinine Ratio (14-18) Glucose (74-106) mg/dL POC Glucose 103 (70-105) mg/dL Calcium (8.5-10.1) mg/dL Total Bilirubin (0.2-1.0) mg/dL AST (15-37) U/L ALT (16-63) U/L Alkaline Phosphatase (46-116) U/L Troponin I (0.00-0.056) ng/mL Total Protein (6.4-8.2) g/dl Albumin (3.4-5.0) g/dl Globulin gm/dL Albumin/Globulin Ratio (1-2) Lipase (73-393) U/L 11/16/20 Range/Units 16:05 WBC (4.23-9.07) K/mm3 RBC (4.63-6.08) M/mm3 Hgb (13.7-17.5) gm/dl Hct (40.1-51.0) % MCV (79.0-92.2) fl MCH (25.7-32.2) pg MCHC (32.2-35.5) g/dl RDW Std Deviation (35.1-43.9) fL Plt Count (163-337) K/mm3 MPV (9.4-12.3) fl Neut % (Auto) (34.0-67.9) % Lymph % (Auto) (21.8-53.1) % [place] % (Auto) (5.3-12.2) % Eos % (Auto) (0.8-7.0) Baso % (Auto) (0.1-1.2) % Neut # (Auto) (1.78-5.38) K/mm3 Lymph # (Auto) (1.32-3.57) K/mm3 [place] # (Auto) (0.30-0.82) K/mm3 Eos # (Auto) (0.04-0.54) K/mm3 Baso # (Auto) (0.01-0.08) K/mm3 Manual Slide Review PT (9.7-12.0) SECONDS INR APTT (21.7-31.4) SECONDS Sodium 138 (136-145) mEq/L Potassium 4.5 (3.5-5.1) mEq/L Chloride 102 (98-107) mEq/L Carbon Dioxide 23 (21-32) mEq/L Anion Gap 17.5 H (5-15) BUN 39 H (7-18) mg/dL Creatinine 1.8 H (0.7-1.3) mg/dL Est Cr Clr Drug Dosing 42.84 mL/min Estimated GFR (MDRD) 39 (>60) mL/min BUN/Creatinine Ratio 21.7 H (14-18) Glucose 114 H (74-106) mg/dL POC Glucose (70-105) mg/dL Calcium 10.0 (8.5-10.1) mg/dL Total Bilirubin 0.5 (0.2-1.0) mg/dL AST 21 (15-37) U/L ALT 69 H (16-63) U/L Alkaline Phosphatase 56 (46-116) U/L Troponin I < 0.017 (0.00-0.056) ng/mL Total Protein 7.5 (6.4-8.2) g/dl Albumin 3.8 (3.4-5.0) g/dl Globulin 3.7 gm/dL Albumin/Globulin Ratio 1.0 (1-2) Lipase 335 (73-393) U/L Meds: Medications Discontinued Medications Generic Name Dose Route Start Last Admin Trade Name Kamron PRN Reason Stop Dose Admin Al Hydroxide/Mg Hydroxide 30 0 ml 03/12/20 15:48 03/12/20 16:15 ml/ Lidocaine HCl 15 ml [id number] 03/12/20 15:49 Not Given ONETIME ONE Al Hydroxide/Mg Hydroxide 30 0 ml 03/12/20 15:53 03/12/20 16:14 ml/ Lidocaine HCl 15 ml PO 03/12/20 15:54 45 ml ONETIME ONE Administration Sodium Chloride 1,000 mls @ 999 mls/hr 03/12/20 17:07 03/12/20 17:23 Normal Saline IV 03/12/20 18:07 999 mls/hr ONETIME ONE Administration Sucralfate 1 gm 03/12/20 17:00 03/12/20 17:23 Carafate PO 03/12/20 17:01 1 gm ONETIME ONE Administration - Re-Assessments/Exams Free Text/Narrative Re-Assessment/Exam: 03/12/20 18:34 Patient did have long-lasting relief he had brief relief from the GI cocktail. It is been an hour since he has had Carafate and this seems to be who improving. Reviewing his labs him quite concerned about his renal function gave him a liter of NS and offered a second however he thinks he is good enough to go home and agrees to push lots of fluids at this point. We will discharge him with Carafate for 1 week and Protonix 60 minutes before his morning meal Departure - Departure Time of Disposition: 18:36 Disposition: Home, Self-Care 01 Clinical Impression: Dyspepsia - Discharge Information Referrals: Cindy Hoang PA-C [Primary Care Provider] - Forms: ED Department Discharge Additional Instructions: Return to the emergency room with any questions problems or worsening symptoms. You have been started on 2 prescriptions. #1 is Carafate you take 1 4 times daily just before breakfast lunch supper and at bedtime for 7 days. The second medication you will take 1 hour prior to your morning meal. Use caution with the Carafate take your other medications at least an hour before taking the Carafate or 2 hours after. Follow-up with your regular healthcare provider on or Thursday for recheck. Sepsis Event Note (ED) - Focused Exam Vital Signs: Vital Signs Temp Pulse Resp BP Pulse Ox 03/12/20 15:21 36.9 C 95 16 124/87 97 - My Orders Last 24 Hours: My Active Orders 03/12/20 15:44 EKG Documentation Completion [RC] STAT - Assessment/Plan Last 24 Hours: My Active Orders 03/12/20 15:44 EKG Documentation Completion [RC] STAT
[2020-03-12] MEDS ORDERED: Alum Hydrox/Mag Hydrox/Simeth 30 ML, Lidocaine 2% 15 ML PEGTUBE ONE ×2 (15:48)
[2020-03-12] MEDS ORDERED: Alum Hydrox/Mag Hydrox/Simeth 30 ML, Lidocaine 2% 15 ML PO ONE ×2 (15:53)
--- NOTE | 2020-03-12 16:23 | CR ---
PROCEDURE INFORMATION: Exam: XR Chest, 1 View Exam date and time: 03/12/2020 3:35 PM Age: 54 years old Clinical indication: Chest pain; Type not specified TECHNIQUE: Imaging protocol: XR of the chest Views: 1 view. COMPARISON: CT Chest wo Cont 01/26/2017 12:43 PM FINDINGS: Lungs: Unremarkable. No consolidation. Pleural space: Unremarkable. No pleural effusion. No pneumothorax. Heart/Mediastinum: Unremarkable. No cardiomegaly. Bones/joints: Left shoulder arthroplasty. IMPRESSION: No acute process Thank you for allowing us to participate in the care of your patient. Dictated and Authenticated by: Don Angela MD 03/12/2020 5:17 PM Central Time ([place] & [place]) ISSA
[2020-03-12] MEDS ORDERED: Sucralfate 1 GM Tab PO ONE (17:00)
[2020-03-12] MEDS ORDERED: Sodium Chloride 0.9% 1,000 ML IV ONE (17:07)
[2020-03-12] MEDS ORDERED: Pantoprazole 40 MG Tab.CR PO ONE (18:35)
== END 2020-03-12 19:00 | disposition home or self-care (01) ==
LOC: JD.ED 15:14
DX: R10.13 Epigastric pain (principal); R07.9 Chest pain, unspecified; R53.83 Other fatigue; I10 Essential (primary) hypertension; J44.9 Chronic obstructive pulmonary disease, unspecified; E11.9 Type 2 diabetes mellitus without complications; Z88.5 Allergy status to narcotic agent; Z79.899 Other long term (current) drug therapy
CPT/HCPCS: 36415; 71045; 80053; 82962; 83690; 84484; 85025; 85610; 85730; 87635; 93005; 99285; A9270; J7030; 93010; 99284; U0002

== ENCOUNTER 2020-12-31 06:42 | Emergency (ER) | payer BC ==
--- NOTE | 2020-12-31 07:16 | EDM.PDOC ---
ED HPI GENERAL MEDICAL PROBLEM - General Chief Complaint: Upper Extremity Injury/Pain Stated Complaint: RT ARM PAIN Time Seen by Provider: 12/31/20 06:58 Source of Information: Reports: Patient History Limitations: Reports: No Limitations - History of Present Illness INITIAL COMMENTS - FREE TEXT/NARRATIVE: The patient presents with right arm and right chest pain. This started a few days ago. He says it started in his right wrist. He denies any injury. He has a history of gout in his leg and it started in his foot and went up his leg. The pain got worse and is up his arm and into his right chest. He has no fever, chills, cough, shortness of breath, abdominal pain, nausea or vomiting. Onset: Gradual Duration: Day(s): Location: Reports: Chest, Upper Extremity, Right Quality: Reports: Sharp Severity: Severe Improves with: Reports: Immobilization Worsens with: Reports: Movement Context: Denies: Trauma Associated Symptoms: Reports: No Other Symptoms Right Arm Pain Score (Numeric/FACES): 10 - Related Data Allergies Allergy/AdvReac Type Severity Reaction Status Date / Time codeine AdvReac Nausea and Verified 12/31/20 06:57 Vomiting Home Meds: Home Meds metFORMIN [Glucophage] 500 mg PO DAILY 07/19/19 [History] Albuterol [Take Home: Albuterol 18 GM, 1 INH Pack] 1 - 2 puff INH QID PRN 01/24/20 [History] Cholecalciferol (Vitamin D3) [Vitamin D3] 5,000 unit PO DAILY 01/24/20 [History] Lisinopril/Hydrochlorothiazide [Lisinopril-Hctz 20-25 mg Tab] 1 tab PO DAILY 01/24/20 [History] Aspirin 81 mg PO DAILY 01/25/20 [History] Aspirin [Ecotrin EC] 325 mg PO BID #84 tab.ec 01/25/20 [Rx] Cranberry 400 mg PO DAILY 01/25/20 [History] Cyclobenzaprine [Flexeril] 10 mg PO BID PRN #20 tablet 01/25/20 [Rx] Docusate Sodium [Colace] 100 mg PO BID cap 01/25/20 [Rx] Famotidine [Pepcid] 20 mg PO Q12H tablet 01/25/20 [Rx] Magnesium Hydroxide [Milk of Magnesia] 30 ml PO BID PRN cup 01/25/20 [Rx] bisacodyL [Dulcolax] 5 mg PO DAILY PRN tablet 01/25/20 [Rx] oxyCODONE 5 - 10 mg PO Q4H PRN #60 tab 01/25/20 [Rx] Pantoprazole Sodium [Protonix] 40 mg PO QAM #30 tablet. 03/12/20 [Rx] Sucralfate [Carafate] 1 gm PO ASDIRECTED #28 tablet 03/12/20 [Rx] Past Medical History HEENT History: Reports: Other (See Below) Other HEENT History: dentures Cardiovascular History: Reports: High Cholesterol, Hypertension Respiratory History: Reports: COPD, Other (See Below) Other Respiratory History: collapsed lung, chronic bronchitis Genitourinary History: Reports: None [employer] History: Reports: None Musculoskeletal History: Reports: None Neurological History: Reports: None Psychiatric History: Reports: None Endocrine/Metabolic History: Reports: Diabetes, Type II Hematologic History: Reports: None Immunologic History: Reports: None Oncologic (Cancer) History: Reports: None Dermatologic History: Reports: Other (See Below) Other Dermatologic History: ingrown toenails - Infectious Disease History Infectious Disease History: Reports: Chicken Pox, Measles, Mumps - Past Surgical History HEENT Surgical History: Reports: Oral Surgery GI Surgical History: Reports: Appendectomy, Colonoscopy, Hernia, Inguinal Male Surgical History: Reports: None Neurological Surgical History: Reports: None Musculoskeletal Surgical History: Reports: Shoulder Surgery, Other (See Below) Other Musculoskeletal Surgeries/Procedures:: surgery to L4, hand sx, L shoulder Dermatological Surgical History: Reports: None Social & Family History - Family History Family Medical History: No Pertinent Family History - Tobacco Use Tobacco Use Status *Q: Never Tobacco User Second Hand Smoke Exposure: No - Caffeine Use Caffeine Use: Reports: Coffee - Recreational Drug Use Recreational Drug Use: No Review of Systems - Review of Systems Review Of Systems: See Below Constitutional: Reports: No Symptoms Eyes: Reports: No Symptoms Ears: Reports: No Symptoms Nose: Reports: No Symptoms Mouth/Throat: Reports: No Symptoms Respiratory: Reports: No Symptoms Cardiovascular: Reports: Chest Pain (right) GI/Abdominal: Reports: No Symptoms Genitourinary: Reports: No Symptoms Musculoskeletal: Reports: Other (right arm pain) ED EXAM, GENERAL - Physical Exam Exam: See Below Exam Limited By: No Limitations General Appearance: Alert, No Apparent Distress Ears: Normal External Exam Nose: Normal Inspection Head: Atraumatic, Normocephalic Neck: Normal Inspection Respiratory/Chest: No Respiratory Distress, Lungs Clear, Normal Breath Sounds Cardiovascular: Regular Rate, Rhythm, No Edema, No Murmur, Other (Pain upon palpation to the right lateral chest) GI/Abdominal: Soft, Non-Tender, No Organomegaly Extremities: Other (Pain upon palpation to the right wrist and fingers with mild edema. Pain upon palpation to the right upper arm. Good sensation and pulses distally.) Course - Vital Signs Last Recorded V/S: Last Vital Signs Temp 97.6 F 12/31/20 06:53 Pulse 97 12/31/20 06:53 Resp 18 12/31/20 06:53 BP 120/81 12/31/20 06:53 Pulse Ox 95 12/31/20 06:53 - Orders/Labs/Meds Orders: Active Orders 24 hr Category Date Time Status Cardiac Monitoring [RC] . DIRECTED Care 12/31/20 07:09 Active Peripheral IV Care [RC] . DIRECTED Care 12/31/20 07:09 Active Wrist Comp Min 3V Rt [CR] Stat Exams 12/31/20 07:10 Taken C-REACTIVE PROTEIN [CHEM] Stat Lab 12/31/20 07:23 Results COMPREHENSIVE METABOLIC PN,CMP [CHEM] Stat Lab 12/31/20 07:23 Results URIC ACID [CHEM] Stat Lab 12/31/20 07:23 Results Sodium Chloride 0.9% [Saline Flush] Med 12/31/20 07:09 Active 10 ml FLUSH ASDIRECTED PRN Durable Medical Equipment for Discharge [DME for Oth 12/31/20 08:30 Ordered Discharge] [COMM] Stat Peripheral IV Insertion Adult [OM.PC] Stat Oth 12/31/20 07:09 Ordered Medication Orders Sodium Chloride (Sodium Chloride 0.9% 10 Ml Syringe) 10 ml FLUSH ASDIRECTED PRN PRN Reason: Keep Vein Open Last Admin: 12/31/20 07:24 Dose: 10 ml Documented by: CAROLE Labs: Laboratory Tests 12/31/20 12/31/20 Range/Units 07:23 07:23 WBC 13.05 H (4.23-9.07) K/mm3 RBC 4.53 L (4.63-6.08) M/mm3 Hgb 13.8 (13.7-17.5) gm/dl Hct 41.2 (40.1-51.0) % MCV 90.9 (79.0-92.2) fl MCH 30.5 (25.7-32.2) pg MCHC 33.5 (32.2-35.5) g/dl RDW Std Deviation 41.6 (35.1-43.9) fL Plt Count 283 (163-337) K/mm3 MPV 9.5 (9.4-12.3) fl Neut % (Auto) 73.1 H (34.0-67.9) % Lymph % (Auto) 13.3 L (21.8-53.1) % [place] % (Auto) 10.5 (5.3-12.2) % Eos % (Auto) 2.1 (0.8-7.0) Baso % (Auto) 0.8 (0.1-1.2) % Neut # (Auto) 9.55 H (1.78-5.38) K/mm3 Lymph # (Auto) 1.74 (1.32-3.57) K/mm3 [place] # (Auto) 1.37 H (0.30-0.82) K/mm3 Eos # (Auto) 0.27 (0.04-0.54) K/mm3 Baso # (Auto) 0.10 H (0.01-0.08) K/mm3 Sodium 134 L (136-145) mEq/L Potassium 4.2 (3.5-5.1) mEq/L Chloride 96 L (98-107) mEq/L Carbon Dioxide 29 (21-32) mEq/L Anion Gap 13.2 (5-15) BUN 28 H (7-18) mg/dL Creatinine 1.8 H (0.7-1.3) mg/dL Est Cr Clr Drug Dosing 42.33 mL/min Estimated GFR (MDRD) 39 (>60) mL/min BUN/Creatinine Ratio 15.6 (14-18) Glucose 173 H (70-99) mg/dL Uric Acid 5.3 (3.5-7.2) mg/dL Calcium 10.1 (8.5-10.1) mg/dL Total Bilirubin 0.8 (0.2-1.0) mg/dL AST 16 (15-37) U/L ALT 32 (16-63) U/L Alkaline Phosphatase 52 (46-116) U/L Total Protein 8.7 H (6.4-8.2) g/dl Albumin 4.1 (3.4-5.0) g/dl Globulin 4.6 gm/dL Albumin/Globulin Ratio 0.9 L (1-2) Meds: Medications Generic Name Dose Route Start Last Admin Trade Name Kamron PRN Reason Stop Dose Admin Sodium Chloride 10 ml 12/31/20 07:09 12/31/20 07:24 Sodium Chloride 0.9% 10 Ml Syringe FLUSH 10 ml ASDIRECTED PRN Administration Keep Vein Open Discontinued Medications Generic Name Dose Route Start Last Admin Trade Name Kamron PRN Reason Stop Dose Admin Hydromorphone HCl 1 mg 12/31/20 07:10 12/31/20 07:25 Hydromorphone 1 Mg/Ml Syringe IVPUSH 12/31/20 07:11 1 mg ONETIME ONE Administration Methylprednisolone Sodium Succinate 125 mg 12/31/20 07:10 12/31/20 07:27 Methylprednisolone Sodium Succinate 125 Mg/2 Ml Sdv IVPUSH 12/31/20 07:11 125 mg ONETIME ONE Administration - Re-Assessments/Exams Free Text/Narrative Re-Assessment/Exam: 12/31/20 07:17 I ordered an IV saline lock, solu-medrol 125mg IV, dilaudid 1mg IV, x-ray of his wrist and labs. 12/31/20 08:34 His x-ray looks good. His WBC was elevated at 13.05. Her Na was low at 134. His creatinine was elevated at 1.8. He is aware his kidneys are not working so well. His glucose was elevated at 173. His uric acid is normal at 5.3. I feel this still gout or pseudogout. I will get him on some prednisone and something for pain. Departure - Departure Time of Disposition: 08:40 Disposition: Home, Self-Care 01 Condition: Good Clinical Impression: Gout Qualifiers: Gout site: wrist Gout etiology: unspecified cause Chronicity: acute Laterality: right Qualified Code(s): M10.9 - Gout, unspecified - Discharge Information *PRESCRIPTION DRUG MONITORING PROGRAM REVIEWED*: Not Applicable *COPY OF PRESCRIPTION DRUG MONITORING REPORT IN PATIENT OPAL: Not Applicable Referrals: Cindy Hoang PA-C [Primary Care Provider] - 1 Week Forms: ED Department Discharge, ED Return to Work/School Form Additional Instructions: Take the prednisone daily for 5 days. Take tylenol or motrin for pain. If that does not help, try the hydrocodone. Please return if you are worse. Sepsis Event Note (ED) - Evaluation Sepsis Screening Result: No Definite Risk - Focused Exam Vital Signs: Vital Signs Temp Pulse Resp BP Pulse Ox 12/31/20 06:53 97.6 F 97 18 120/81 95 - My Orders Last 24 Hours: My Active Orders 12/31/20 07:09 Cardiac Monitoring [RC] . DIRECTED Peripheral IV Care [RC] . DIRECTED Sodium Chloride 0.9% [Saline Flush] 10 ml FLUSH ASDIRECTED PRN Peripheral IV Insertion Adult [OM.PC] Stat 12/31/20 07:10 Wrist Comp Min 3V Rt [CR] Stat 12/31/20 07:23 C-REACTIVE PROTEIN [CHEM] Stat COMPREHENSIVE METABOLIC PN,CMP [CHEM] Stat URIC ACID [CHEM] Stat 12/31/20 08:30 Durable Medical Equipment for Discharge [DME for Discharge] [COMM] Stat - Assessment/Plan Last 24 Hours: My Active Orders 12/31/20 07:09 Cardiac Monitoring [RC] . DIRECTED Peripheral IV Care [RC] . DIRECTED Sodium Chloride 0.9% [Saline Flush] 10 ml FLUSH ASDIRECTED PRN Peripheral IV Insertion Adult [OM.PC] Stat 12/31/20 07:10 Wrist Comp Min 3V Rt [CR] Stat 12/31/20 07:23 C-REACTIVE PROTEIN [CHEM] Stat COMPREHENSIVE METABOLIC PN,CMP [CHEM] Stat URIC ACID [CHEM] Stat 12/31/20 08:30 Durable Medical Equipment for Discharge [DME for Discharge] [COMM] Stat
[2020-12-31] MEDS: Sodium Chloride 0.9% 10 ML Syringe FLUSH PRN (07:24)
[2020-12-31] MEDS: HYDROmorphone 1 MG/ML Syringe IVPUSH ONE (07:25)
[2020-12-31] MEDS: methylPREDNISolone Sodium Succinate 125 MG/2 ML SDV IVPUSH ONE (07:27)
[2020-12-31 08:58] VITALS: BP 110/69; PULSE 80
--- NOTE | 2020-12-31 15:45 | CR ---
Right wrist: 4 views of the right wrist were obtained. Comparison: No prior right wrist study is available. Joint spaces are maintained. Slight deformity is noted within the distal right fifth metacarpal compatible with old healed fracture. Cyst is noted within the distal ulna which is incidental. Cyst is also noted within the distal navicular bone. Minimal calcification is seen off the radial styloid process which is felt to be degenerative. No acute fracture, dislocation or other bony abnormality is appreciated. Impression: 1. Old healed fracture as well as distal ulnar navicular cysts which are felt to be benign. 2. Degenerative calcification at the radial styloid process. 3. Nothing acute is seen on right wrist exam. Diagnostic code #2
== END 2020-12-31 09:10 | disposition home or self-care (01) ==
LOC: JD.ED 06:42
DX: M10.9 Gout, unspecified (principal); I10 Essential (primary) hypertension; J44.9 Chronic obstructive pulmonary disease, unspecified; E11.9 Type 2 diabetes mellitus without complications; Z88.5 Allergy status to narcotic agent; Z79.82 Long term (current) use of aspirin; Z79.84 Long term (current) use of oral hypoglycemic drugs; Z79.899 Other long term (current) drug therapy
CPT/HCPCS: 36415; 73110; 80053; 84550; 85025; 86140; 96374; 96375; 99283; J1170; J2930

== ENCOUNTER 2021-10-22 15:54 | Emergency (ER) | payer BC ==
[2021-10-22 16:07] VITALS: BP 156/99; PULSE 70
[2021-10-22] MEDS ORDERED: Morphine 4 MG/ML Syringe IVPUSH ONE (16:33)
[2021-10-22] MEDS ORDERED: predniSONE 20 MG Tab PO ONE (18:06)
== END 2021-10-22 18:23 | disposition home or self-care (01) ==
LOC: JD.ED 15:54
DX: M10.9 Gout, unspecified (principal); E78.00 Pure hypercholesterolemia, unspecified; I10 Essential (primary) hypertension; J44.9 Chronic obstructive pulmonary disease, unspecified; E11.9 Type 2 diabetes mellitus without complications; F17.210 Nicotine dependence, cigarettes, uncomplicated; Z88.5 Allergy status to narcotic agent; Z79.84 Long term (current) use of oral hypoglycemic drugs; Z79.82 Long term (current) use of aspirin
CPT/HCPCS: 36415; 73562; 80053; 84550; 85025; 86140; 96374; 99283; J2270; J7512

== ENCOUNTER → 2022-02-04 | Day surgery (SDC) | payer BC ==
[~2022-02-04] MED LIST changes: +Albuterol 0.083% 2.5 MG/3 ML Neb Soln NEB ONE; -Albuterol 0.083% 2.5 MG/3 ML Neb Soln NEB PRN; -Bisacodyl 5 MG Tab PO PRN; -EPINEPHrine 1 MG/ML SDV ONE; +Glucagon,Human Recombinant 1 MG Vial IVPUSH ONE; +Lactated Ringers 1,000 ML ONE; -Lidocaine 1%/Sod Bicarbonate in NS 8.4% 1 ML Syringe IDERM PRN; -Magnesium Hydroxide 400 MG/5 ML Susp 30 ML Cup PO PRN; -Naloxone 0.4 MG/ML SDV IVPUSH PRN; +Ondansetron 4 MG/2 ML SDV IVPUSH ONE; -Ondansetron 4 MG/2 ML SDV IVPUSH PRN; -Rocuronium 50 MG/5 ML Vial ONE; -Ropivacaine 0.5% 5 MG/ML 30 ML SDV ONE; -Sennosides 8.6 MG Tab PO PRN; +Sodium Chloride 0.9% 1,000 ML IV SCH; +Succinylcholine 200 MG/10 ML MDV ONE; -ceFAZolin 1 GM Vial ONE; -oxyCODONE 5 MG Tab PO PRN
[2022-02-04 03:04] VITALS: BP 153/99; PULSE 106
== END ==
LOC: JD.ED 02:48 → JD.SDS 04:45 → JD.ED 04:56
PROVIDERS: ATTEND Surgery
DX: K22.2 Esophageal obstruction (principal); E11.65 Type 2 diabetes mellitus with hyperglycemia; J44.9 Chronic obstructive pulmonary disease, unspecified; I10 Essential (primary) hypertension; Z88.5 Allergy status to narcotic agent; Z79.84 Long term (current) use of oral hypoglycemic drugs; Z79.899 Other long term (current) drug therapy; Z79.82 Long term (current) use of aspirin; Z90.49 Acquired absence of other specified parts of digestive tract; Z87.891 Personal history of nicotine dependence
CPT/HCPCS: 82947; 94640; 96361; 96374; 96375; 99284; J0330; J1610; J2250; J2405; J2704; J3010; J7030; J7120; 00731; 99140

== ENCOUNTER 2024-05-29 11:08 | Inpatient (IN) | payer BC ==
[2024-05-29 11:38] LABS: HEMATOCRIT 45.5 % (42.0-52.0); HEMOGLOBIN 15.5 gm/dl (14.0-18.0); MEAN CORPUSCULAR HEMOGLOBIN 30.9 pg (28.0-32.0); MEAN CORPUSCULAR HGB CONC 34.1 g/dl (32.0-36.0); MEAN CORPUSCULAR VOLUME 90.6 fl (83.0-99.0); MEAN PLATELET VOLUME 9.6 fl (9.4-12.4); PLATELET COUNT,PLT 158 K/mm3 (150-400); RED BLOOD CELL COUNT 5.02 M/mm3 (4.52-5.90); WHITE BLOOD CELL COUNT,WBC 15.63 K/mm3 (3.9-11.3)
[2024-05-29] MEDS: Albuterol/Ipratropium 3.0-0.5 MG/3 ML Neb Soln NEB ONE (11:42)
[2024-05-29] MEDS: Ondansetron 4 MG/2 ML SDV IVPUSH ONE (11:43)
[2024-05-29 11:44] LABS: INR 1.03; PROTHROMBIN TIME 10.9 SECONDS (9.7-12.0)
[2024-05-29] MEDS: Sodium Chloride 0.9% 10 ML Syringe FLUSH PRN (11:45)
[2024-05-29] MEDS: methylPREDNISolone Sodium Succinate 125 MG/2 ML SDV IVPUSH ONE (11:45)
[2024-05-29] MEDS: Sodium Chloride 0.9% 1,000 ML IV STA ×2 (11:52→19:29)
[2024-05-29 11:57] LABS: A/G RATIO 0.8 (1-2); ALBUMIN 3.5 g/dl (3.4-5.0); ANION GAP 14.4 (5-15); BILIRUBIN TOTAL 0.9 mg/dL (0.2-1.0); BUN/CREATININE RATIO 9.5 (14-18); C-REACTIVE PROTEIN 21.68 mg/dL (<0.30); CALCIUM 8.9 mg/dL (8.5-10.1); CREATININE 1.9 mg/dL (0.7-1.3); EST CRCL DRUG DOSING (CG) 38.65 mL/min; POTASSIUM,K 4.4 mEq/L (3.5-5.1); PROTEIN TOTAL,TP 7.7 g/dl (6.4-8.2)
[2024-05-29 12:08] LABS: LACTIC ACID 2.3 mmol/L (0.4-2.0)
[2024-05-29 12:35] LABS: CORONAVIRUS COVID-19 NAA NEGATIVE (NEGATIVE); INFLUENZA A NAA POSITIVE (NEGATIVE); RESPIRATORY SYNCYTIAL VIR NAA NEGATIVE (NEGATIVE)
[2024-05-29 12:42] LABS: BAND PERCENT MAN 19 % (0-10); BASOPHILS PERCENT MAN 0 (0.2-1.2); EOSINOPHILS PERCENT MAN 0 % (0.8-7.0); LYMPHOCYTES % ATYPICAL MANUAL 0 %; LYMPHOCYTES PERCENT MAN 9 % (20-40); MONOCYTES PERCENT MAN 4 % (2-10)
[2024-05-29 12:53] LABS: PLATELET COUNT ESTIMATE ADEQUATE; TOXIC GRANULATION 1+ SLIGHT
[2024-05-29] MEDS: Piperacillin/Tazobactam 4.5 GM in Sodium Chloride 0.9% 100 ML IV ONE (12:58)
[2024-05-29] MEDS: Oseltamivir 75 MG Cap PO ONE (12:59)
[2024-05-29 13:09] LABS: APPEARANCE,URINE CLEAR (Clear); BILIRUBIN,URINE NEGATIVE (Negative); COLOR,URINE YELLOW (Yellow); GLUCOSE,URINE NEGATIVE (Negative); KETONES,URINE TRACE (Negative); LEUKOCYTE ESTERASE,URINE NEGATIVE (Negative); NITRITE,URINE NEGATIVE (Negative); OCCULT BLOOD,URINE 1+ (Negative); PH,URINE 5.5 (5.0-8.0); PROTEIN,URINE 3+ (Negative); UROBILINOGEN,URINE 0.2 (0.2-1.0)
[2024-05-29 14:25] LABS: BACTERIA,URINE MODERATE /hpf (FEW); EPITHELIAL CELLS,URINE 0-5 /hpf (0-5); MUCUS,URINE MODERATE /hpf (FEW); RBC,URINE 0-5 /hpf (0-5); WBC,URINE 0-5 /hpf (0-5)
[2024-05-29] MEDS ORDERED: Piperacillin/Tazobactam 4.5 GM in Sodium Chloride 0.9% 100 ML IV SCH (14:45)
[2024-05-29] MEDS: Albuterol/Ipratropium 3.0-0.5 MG/3 ML Neb Soln NEB SCH (16:36)
[2024-05-29] MEDS ORDERED: 50% Dextrose in Water 50 ML Syringe IVPUSH PRN (18:37)
[2024-05-29] MEDS: Ondansetron 4 MG/2 ML SDV IVPUSH PRN (18:41)
[2024-05-29] MEDS: Piperacillin/Tazobactam 4.5 GM in Water For Injection, Sterile 20 ML IV SCH (20:54)
[2024-05-29] MEDS: Insulin Lispro 100 Unit/ML 3 ML KwikPen SUBCUT SCH (21:20)
[2024-05-30 05:39] LABS: BASOPHILS PERCENT AUTO 0.1 % (0.0-1.0); HEMATOCRIT 37.3 % (42.0-52.0); IMMATURE GRAN ABSOLUTE AUTO 0.07 K/mm3 (0.00-0.05); IMMATURE GRAN PERCENT AUTO 0.5 % (0.0-0.4); LYMPHOCYTES ABSOLUTE AUTO 0.9 K/mm3 (1.0-4.8); MEAN CORPUSCULAR HEMOGLOBIN 30.8 pg (28.0-32.0); MEAN CORPUSCULAR HGB CONC 34.6 g/dl (32.0-36.0); MONOCYTES ABSOLUTE AUTO 0.4 K/mm3 (0.0-0.8); MONOCYTES PERCENT AUTO 2.9 % (0.0-8.0); NEUTROPHILS ABSOLUTE AUTO 12.9 K/mm3 (1.8-7.7); NEUTROPHILS PERCENT AUTO 90.5 % (41.0-71.0); PLATELET COUNT,PLT 136 K/mm3 (150-400); RED BLOOD CELL COUNT 4.19 M/mm3 (4.52-5.90); WHITE BLOOD CELL COUNT,WBC 14.25 K/mm3 (3.9-11.3)
[2024-05-30 05:50] LABS: A/G RATIO 0.7 (1-2); ALBUMIN 2.6 g/dl (3.4-5.0); ANION GAP 15.8 (5-15); BILIRUBIN TOTAL 0.6 mg/dL (0.2-1.0); BUN/CREATININE RATIO 15.7 (14-18); CALCIUM 8.3 mg/dL (8.5-10.1); CREATININE 1.4 mg/dL (0.7-1.3); EST CRCL DRUG DOSING (CG) 52.46 mL/min; HEMOGLOBIN 12.9 gm/dl (14.0-18.0); POTASSIUM,K 3.8 mEq/L (3.5-5.1); PROTEIN TOTAL,TP 6.5 g/dl (6.4-8.2)
[2024-05-30] MEDS ORDERED: Acetaminophen 325 MG Tab PO PRN (07:46)
[2024-05-30] MEDS ORDERED: Docusate Sodium 100 MG Cap PO PRN (07:46)
[2024-05-30] MEDS ORDERED: Polyethylene Glycol 3350 Powder 17 GM Packet PO PRN (07:46)
[2024-05-30] MEDS ORDERED: traMADol 50 MG Tab PO PRN (07:48)
[2024-05-30] MEDS: Pantoprazole 40 MG Tab.CR PO SCH (08:12)
[2024-05-30] MEDS: Fenofibrate Nanocrystallized 145 MG Tab PO SCH (08:12)
[2024-05-30] MEDS: Oseltamivir 30 MG Cap PO SCH (08:12)
[2024-05-30] MEDS: Calcium Carbonate 500 MG Tab.Chew PO PRN (08:12)
[2024-05-30] MEDS: predniSONE 20 MG Tab PO ONE (08:12)
[2024-05-30] MEDS: Enoxaparin 40 MG/0.4 ML Syringe SUBCUT SCH (08:18)
[2024-05-30] MEDS: Insulin Glargine,Human Rec. Analog 100 Units/ML 3 ML Pen SUBCUT SCH (08:19)
[2024-05-30] MEDS: Formoterol/Mometasone 200-5 MCG 8.8 GM Inhaler INH SCH (08:31)
[2024-05-30] MEDS: Metoclopramide 10 MG/2 ML SDV IVPUSH PRN (11:50)
[2024-05-30] MEDS: guaiFENesin 600 MG Tab.ER PO SCH (11:51)
[2024-05-30] MEDS: Albuterol/Ipratropium 3.0-0.5 MG/3 ML Neb Soln NEB SCH (16:22)
[2024-05-30] MEDS: Piperacillin/Tazobactam 4.5 GM in Sodium Chloride 0.9% 100 ML IV SCH (17:38)
[2024-05-31 04:43] LABS: BASOPHILS PERCENT AUTO 0.1 % (0.0-1.0); HEMATOCRIT 36.4 % (42.0-52.0); HEMOGLOBIN 12.1 gm/dl (14.0-18.0); IMMATURE GRAN ABSOLUTE AUTO 0.07 K/mm3 (0.00-0.05); IMMATURE GRAN PERCENT AUTO 0.5 % (0.0-0.4); LYMPHOCYTES ABSOLUTE AUTO 1.7 K/mm3 (1.0-4.8); LYMPHOCYTES PERCENT AUTO 11.1 % (24.0-44.0); MEAN CORPUSCULAR HEMOGLOBIN 30.4 pg (28.0-32.0); MEAN CORPUSCULAR HGB CONC 33.2 g/dl (32.0-36.0); MEAN CORPUSCULAR VOLUME 91.5 fl (83.0-99.0); MEAN PLATELET VOLUME 10.2 fl (9.4-12.4); MONOCYTES ABSOLUTE AUTO 0.8 K/mm3 (0.0-0.8); MONOCYTES PERCENT AUTO 5.1 % (0.0-8.0); NEUTROPHILS ABSOLUTE AUTO 12.3 K/mm3 (1.8-7.7); NEUTROPHILS PERCENT AUTO 83.2 % (41.0-71.0); PLATELET COUNT,PLT 137 K/mm3 (150-400); RED BLOOD CELL COUNT 3.98 M/mm3 (4.52-5.90); WHITE BLOOD CELL COUNT,WBC 14.81 K/mm3 (3.9-11.3)
[2024-05-31 05:12] LABS: A/G RATIO 0.7 (1-2); ALBUMIN 2.5 g/dl (3.4-5.0); ANION GAP 12.9 (5-15); BILIRUBIN TOTAL 0.4 mg/dL (0.2-1.0); C-REACTIVE PROTEIN 10.86 mg/dL (<0.30); CALCIUM 8.8 mg/dL (8.5-10.1); CREATININE 1.4 mg/dL (0.7-1.3); EST CRCL DRUG DOSING (CG) 52.46 mL/min; POTASSIUM,K 3.9 mEq/L (3.5-5.1); PROTEIN TOTAL,TP 6.1 g/dl (6.4-8.2)
[2024-05-31 05:36] LABS: SLIDE REVIEW NORMAL SMEAR
[2024-05-31] MEDS: predniSONE 20 MG Tab PO SCH (06:40)
[2024-05-31 13:22] VITALS: BP 131/74; PULSE 83
== END 2024-05-31 12:04 | disposition home or self-care (01) | DRG 720 ==
LOC: JD.ED 11:08 → JD.MS 18:39
PROVIDERS: ADMIT Internal Medicine; ATTEND Internal Medicine
DX: A41.9 Sepsis, unspecified organism (principal); H54.7 Unspecified visual loss; I10 Essential (primary) hypertension; E11.9 Type 2 diabetes mellitus without complications; J96.01 Acute respiratory failure with hypoxia; R65.20 Severe sepsis without septic shock; J18.9 Pneumonia, unspecified organism; J10.1 Influenza due to other identified influenza virus with other respiratory manifestations; J44.1 Chronic obstructive pulmonary disease with (acute) exacerbation; E78.00 Pure hypercholesterolemia, unspecified; N17.9 Acute kidney failure, unspecified; E87.20 Acidosis, unspecified; K21.9 Gastro-esophageal reflux disease without esophagitis; Z79.899 Other long term (current) drug therapy; Z98.890 Other specified postprocedural states; Z90.49 Acquired absence of other specified parts of digestive tract; Z72.0 Tobacco use; Z96.619 Presence of unspecified artificial shoulder joint; Z88.8 Allergy status to other drugs, medicaments and biological substances
CPT/HCPCS: 0241U; 36415; 71046; 71046-26; 80053; 81001; 82947; 83605; 83735; 83880; 84484; 85007; 85025; 85027; 85610; 86140; 87040; 93005; 93010; 94640; 94667; 94668; 94761; 96361; 96365; 96375; 99223; 99239; 99285; 99285-25; A9270-GY; J1650; J1815; J1815-GY; J2405; J2543; J2765; J2919; J7030; J7512; J7620-GY